=== PATIENT | female | born 1970 | race Caucasian/White ===

== ENCOUNTER 2022-11-15 15:02 | Emergency (ER) | payer MEDICARE ==
[~2022-11-15] VITALS: Ht 157 cm; Wt 143.0 kg
[2022-11-15 15:30] VITALS: BP 142/80
--- NOTE | 2022-11-15 16:00 | ED Lower Extremity ---
General Chief Complaint: Trauma-Non Activation Stated Complaint: FELL OUT SIDE LEFT FOOT SWOLIN Nursing Triage Note: PT FELL GETTING OUT OF CAR INTO A POT HOLE. HURTING LEFT FOOT AND RIGHT KNEE. DENIES HITTING HER HEAD. Source: patient, family Exam Limitations: no limitations History of Present Illness Date Seen by Provider: Nov 15, 2022 Time Seen by Provider: 15:43 Initial Comments 52-year-old female presents to the emergency department for left foot and right knee pain. She tripped in a pothole getting out of her car. She is diabetic and has significant soft tissue injury to her left foot and had an abrasion, laceration to her right knee. She states she knows that rocks in her right knee wound. She has some bony tenderness in the right knee as well. She has been ambulatory since the event. All other systems reviewed and negative except documented per HPI. Voice recognition software was used to help create this chart Allergies and Home Medications Allergies Coded Allergies: Penicillins (Verified Allergy, Severe, 11/15/22) aspirin (Verified Allergy, Unknown, 11/15/22) metformin (Verified Allergy, Unknown, 11/15/22) orphenadrine (Verified Allergy, Unknown, 11/15/22) Uncoded Allergies: MONSTOP (Allergy, Unknown, 11/15/22) TECWIN (Allergy, Unknown, 11/15/22) Patient Home Medication List Home Medication List Reviewed: Yes Review of Systems Constitutional: see HPI Past Qyteedx-Stqvvy-Dnnhfo Hx Patient Social History Tobacco Use?: Yes Tobacco type used: Cigarettes Smoking Status: Current Everyday Smoker Substance use?: No Alcohol Use?: No Immunizations Up To Date COVID19 Vaccine 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 oz. kg; 58.00 BMI Method: General Appearance: WD/WN, no apparent distress Cardiovascular: regular rate, rhythm, no murmur Respiratory: chest non-tender, lungs clear, normal breath sounds Hips: bilateral hip non-tender, bilateral hip normal inspection, bilateral hip normal range of motion Legs: bilateral leg non-tender, bilateral leg normal inspection, bilateral leg normal range of motion Knees: left knee non-tender, left knee normal inspection, left knee normal range of motion; right knee other (Puncture type laceration about 2 cm inferior to the right knee joint. There are some visible rocks that are removed. Extends in subcutaneous tissue and less than 1 cm total length. Advised mother and sister intact distally. There is some tenderness palpation of the knee joint with no obvious swelling or deformity.) Ankles: bilateral ankle non-tender, bilateral ankle normal inspection, bilateral ankle normal range of motion Feet: left foot other (Significant damage to the plantar surface of the left foot, especially on the medial surface just under the great toe. These are mostly skin tears with no obvious lacerations. No tenderness involvement. Neurovascular motor and sensory intact.) Neurologic/Psychiatric: no motor/sensory deficits, alert, normal mood/affect, oriented x 3 Skin: other (As described above) Progress/Results/Core Measures Results/Orders My Orders Orders - CARSONCHAMP CASTELLON DO Foot, Left, 3 Views (11/15/22 15:56) Knee, Right, 3 Views (11/15/22 15:56) Dipht,Pertuss(Acell),Tet Adult (Boostrix (11/15/22 17:00) Vital Signs/I&O 11/15/22 15:30 Temp 36.3 Pulse 84 Resp 16 B/P (MAP) 142/80 (100) Pulse Ox 98 O2 Delivery Room Air Blood Pressure Mean: 100 Departure Communication (Admissions) Have independently reviewed the x-rays and they are negative. This agrees with radiologist findings. Wounds are cleansed thoroughly and copiously irrigated. Debris was removed from the left knee wound and there is no obvious remaining foreign body on x-ray or visibly. We will close these wounds for fear of infection. Given antibiotics and discharged with close follow-up. Impression Primary Impression: Abrasion of skin of left foot Additional Impression: Laceration of right knee Qualified Codes: S81.011A - Laceration without foreign body, right knee, initial encounter Disposition: HOME, SELF-CARE Condition: Stable Departure-Patient Inst. Patient Instructions: Wound Care (DC) Add. Discharge Instructions: Keep the wound clean. Take the antibiotics as prescribed until they are gone. Follow-up with primary doctor in the next week. Your tetanus shot was updated in the emergency department today. All discharge instructions reviewed with patient and/or family. Voiced understanding. CHAMP BYRD DO Nov 15, 2022 16:00
--- NOTE | 2022-11-15 16:14 | Diagnostic Imaging Report ---
INDICATION: Fall, pain. FINDINGS: Three-view left foot shows postsurgical changes to the lower leg and ankle. There is hind, mid, and forefoot arthritis without erosive component. No fracture. No acute periosteal reaction. IMPRESSION: Chronic findings, as described. Dictated by: Dictated on workstation # [id number]
--- NOTE | 2022-11-15 16:24 | Diagnostic Imaging Report ---
INDICATION: Right knee pain. EXAMINATION: AP, oblique and lateral views of the right knee were obtained. FINDINGS: No fracture or acute bony abnormality is seen. There is prominent patellofemoral spurring and joint space narrowing. There is marked medial joint space narrowing and osteophyte formation. There is moderate lateral joint space degenerative change. IMPRESSION: Tricompartmental osteoarthritic changes of the right knee with no acute abnormality. Dictated by: Dictated on workstation # [id number]
[2022-11-15] MEDS ORDERED: TETANUS,DIPTH,PERTUSS P/F (BOOSTRIX) 0.5 ML VIAL IM ONE (17:00)
== END 2022-11-15 17:09 | disposition home or self-care (01) ==
LOC: ER 15:11
DX: S81.011A Laceration without foreign body, right knee, initial encounter (principal); S90.812A Abrasion, left foot, initial encounter; F17.210 Nicotine dependence, cigarettes, uncomplicated; Z23 Encounter for immunization; Z88.0 Allergy status to penicillin; W17.2XXA Fall into hole, initial encounter
CPT/HCPCS: 73562; 73630; 90715